=== PATIENT | male | born 1955 | race Caucasian/White ===

== ENCOUNTER 2024-04-29 13:11 | Emergency (ER) | payer MEDICARE, OTHER, SELFPAY ==
[2024-04-29 13:40] VITALS: BP 118/77
[2024-04-29 13:56] LABS: % Basophils 0.6 % (0-2); % Eosinophils 4.7 % (0-6); % Immature Granulocytes 0.2 % (0-0.5); % Lymphocytes 40.3 % (20.5-51.1); % Monocytes 10.4 % (1.7-9.3); % Neutrophils 43.8 % (42.2-75.2); Absolute Eosinophils 0.2 10^3/uL (0-0.7); Absolute Lymphocytes 1.9 10^3/uL (1.2-3.4); Absolute Monocytes 0.5 10^3/uL (0.1-0.6); Absolute Neutrophils 2.1 10^3/uL (1.4-6.5); Hematocrit 43.4 % (39.0-52.0); Hemoglobin 14.9 g/dL (13.0-18.0); Mean Corp Hgb Conc. 34.3 g/dL (33.0-37.0); Mean Corpuscular Hgb 31.6 pg (27.0-31.0); Mean Corpuscular Volume 91.9 fL (80.0-94.0); Mean Platelet Volume 9.3 fL (7.4-10.4); Nucleated Red Blood Cells % 0 % (-); Platelet Count 167 10^3/uL (130-400); Red Blood Cell Count 4.72 10^6/uL (4.70-6.10); Red Cell Dist. Width 12.3 % (11.5-14.5); White Blood Cell Count 4.7 10^3/uL (4.8-10.8)
[2024-04-29 14:11] LABS: ALT (SGPT) 68 U/L (0-50); AST (SGOT) 57 U/L (17-59); Albumin 4.9 g/dl (3.5-5.0); Alkaline Phosphatase 51 U/L (38-126); Blood Urea Nitrogen 14 mg/dl (9-20); Calcium 9.6 mg/dl (8.4-10.2); Carbon Dioxide 29 mmol/L (22-30); Chloride 101 mmol/L (98-107); Glucose 135 mg/dl (70-99); Potassium 4.1 mmol/L (3.5-5.1); Sodium 137 mmol/L (135-145); Total Bilirubin 0.6 mg/dl (0.2-1.3); Total Protein 9.1 g/dl (6.3-8.2); eGFR > 60.00
[2024-04-29 14:50] LABS: Erythrocyte Sed Rate 25 mm/hour (0-20)
[2024-04-29 16:07] VITALS: BP 123/73
--- NOTE | 2024-04-29 16:52 | ED.GENMED ---
History of Present Illness
General
Chief Complaint: Headache
Source: patient
Exam Limitations: none
Time Seen by Provider: 04/29/24 16:41
History of Present Illness
History of Present Illness:
See MDM
Past History
Past History
ED Past Medical History: Hypercholesterolemia, NIDDM, Psychiatric (Anxiety, Depression) and Other (Renal calculus, )
ED Past Surgical History: Cholecystectomy
Social History
Tobacco: Non-smoker
Alcohol: None
Personal:
Living: with family
Phy Exam
Physical Exam
Physical Exam:
See MDM
Course
Orders/Labs/Results
Orders:
Orders
04/29/24 13:48
C-Reactive Protein Urgent
Complete Blood Count/With Diff Urgent
Comprehensive Metabolic Panel Urgent
ESR [Erythrocyte Sed Rate] Urgent
04/29/24 16:49
CT Head W/o Iv Contrast Urgent
Comment:
Reason For Exam: left side headache
04/29/24 16:50
Carbamazepine [Tegretol] 200 mg PO ONCE ONE
Abnormal Lab Results
04/29/24
13:48
WBC 4.7 L 10^3/uL
(4.8-10.8)
MCH 31.6 H pg
(27.0-31.0)
Monocytes % 10.4 H %
(1.7-9.3)
ESR 25 H mm/hour
(0-20)
Glucose 135 H mg/dl
(70-99)
ALT 68 H U/L
(0-50)
Total Protein 9.1 H g/dl
(6.3-8.2)
04/29/24 13:48
04/29/24 13:48
Vital Signs
Initial and Last Documented VS:
Initial Vital Signs
Temp Pulse Resp BP Pulse Ox
97.9 F 87 18 118/77 96
04/29/24 13:40 04/29/24 13:40 04/29/24 13:40 04/29/24 13:40 04/29/24 13:40
Last Documented Vital Signs
Temp Pulse Resp BP Pulse Ox
97.9 F 87 18 123/73 97
04/29/24 13:40 04/29/24 16:07 04/29/24 16:07 04/29/24 16:07 04/29/24 16:07
MDM/Problems Addressed
Differential Diagnosis Includes:
HPI and MDM Narrative:
68-year-old male presenting with left-sided headache. He points to his left scalp along his hairline and back into his ear. He spoke to his doctor and his symptoms and was sent to the emergency department to rule out temporal arteritis. On exam,
he is well-appearing and nontoxic. There is no tenderness to palpation of the temporal artery. Blood work was done prior to my assessment and his CRP is normal. Although he ESR is mildly elevated at 25, doubt temporal arteritis given that it is
less than 50
His pain distribution is more indicative of trigeminal neuralgia. Will obtain CT head and start low-dose Tegretol
Physical exam
General: Well appearing and non-toxic
HEENT: protecting airway. EOMI. No tenderness to palpation of temporal artery
Neck: appears supple
CV: No evidence of cyanosis
Resp: No accessory muscle use
Abd: Non-distended
Extremities: No deformities
Neuro: alert
Psych: Normal affect
Skin: Intact
Problems Addressed including Acute and Chronic Conditions affecting care:
1. Scalp pain
Acuity: acute
Prognosis: stable
Details: Likely in the setting of trigeminal neuralgia. Given no tenderness with temporal artery palpation and only minimally elevated ESR, doubt temporal arteritis
Updates
CT head negative. On reassessment, patient feeling somewhat better and feels comfortable going home. We discussed that we are giving a trial of Tegretol this week and discussed symptoms and having it reevaluated with PCP
Differential Diagnosis (but not limited to): Trigeminal neuralgia, tension headache, migraine
Testing considered: EKG
Drug therapy (if applicable): OTC meds, please see d/c instruction regarding Rx drugs
Amount and/or Complexity of Data Reviewed
Clinical info obtained from: Patient
External data reviewed: N/A
Labs I independently reviewed (but not limited to): ESR minimally elevated at 25. CRP normal
Radiology: The CT scan was personally and independently reviewed. In addition, official CT report reviewed.
Pulse Ox: not hypoxic
EKG independently reviewed: N/A
[employer] Operator: N/A
Critical Care: N/A
Risk of Complication:
Social Determinants of health: Good social support
Discussed with other providers: N/A
Escalation of Care includes Admit/Obs: After being observed in the Emergency Department, pt stable for discharge.
Occasional wrong word or 'sound a like' substitutions may have occurred due to the inherent limitations of voice recognition software. Read the chart carefully and recognize, using context, where substitutions have occurred.
*Critical Care Note
Total Time (30-74mins, 75-104mins- exclusive of procedures): Not Applicable
ED Attending Note
-
Portions of this chart may have been created with voice recognition software.� Occasional wrong word or��sound alike� substitutions may have occurred due to the inherent limitations of voice recognition software.
Discharge Plan
Departure
Patient Disposition: Home (Routine Discharge)
Date of Disposition: 04/29/24
Time of Disposition: 19:50
Patient with high blood pressure during this ER visit?: No
Discharge Problem:
Trigeminal neuralgia of left side of face
Instructions: Trigeminal neuralgia
Prescriptions:
New
carbamazepine [Tegretol] 200 mg tablet
200 mg PO BID Qty: 14 0RF
No Action
doxycycline monohydrate 100 mg capsule
100 mg PO BID Qty: 20 0RF
cefuroxime axetil 500 mg tablet
500 mg PO BID 10 Days Qty: 20 0RF
Referrals:
Shirlene Schneider MD [Family Provider] -
Activity Restrictions/Additional Instructions:
As we discussed, your symptoms could be related to an inflamed nerve on the left side of your face. I am starting you on a low-dose medication called carbamazepine. Please have your symptoms reevaluated by your primary care doctor. If the
medicine is helping, your doctor may want to continue it for a longer duration.
Please return for any worsening symptoms.
You may return at any time if you have further concerns.
Please follow up with your doctor at the first available appointment, preferably this week.
Thank you for choosing [facility].
Interventions
Interventions:
*Risk Screen - Suicide Last Done: 04/29/24 16:06
*General Assessment Last Done: 04/29/24 16:06
*Neglect/Abuse Screening Last Done: 04/29/24 16:06
ED- Fall Risk Assessment Last Done: 04/29/24 16:08
*ED COVID-19 Vaccine History Last Done: 04/29/24 16:06
ED- Neurological Assessment Last Done: 04/29/24 16:08
Discharge Date and Time
Print Language: [id number]
[2024-04-29] MEDS: TEGRETOL 200 MG PO (17:03)
== END 2024-04-29 20:10 | disposition home or self-care (01) ==
LOC: EMR 13:11
PROVIDERS: Emergency Medicine; EMERGENCY PHYSICIAN Student in an Organized Health Care Education/Training Program; FAMILY PHYSICIAN Internal Medicine Geriatric Medicine
DX: G50.0 Trigeminal neuralgia (principal); E78.00 Pure hypercholesterolemia, unspecified; E11.9 Type 2 diabetes mellitus without complications; F41.8 Other specified anxiety disorders; Z87.442 Personal history of urinary calculi; Z90.49 Acquired absence of other specified parts of digestive tract
CPT/HCPCS: 99284; 70450; 80053; 85025; 85652; 86140

== ENCOUNTER → 2024-07-20 09:40 | Outpatient (REF) | payer MEDICARE, OTHER, SELFPAY | LOC: HWRAD 09:40 | PROVIDERS: ATTENDING PHYSICIAN Urology | DX: N20.0 Calculus of kidney (principal) | CPT/HCPCS: 76775 ==

== ENCOUNTER → 2024-08-17 12:18 | Outpatient (REF) | payer MEDICARE, OTHER, SELFPAY | LOC: PAVMRI 12:18 | PROVIDERS: ATTENDING PHYSICIAN Student in an Organized Health Care Education/Training Program | DX: R51.9 Headache, unspecified (principal); Z82.49 Family history of ischemic heart disease and other diseases of the circulatory system; G50.0 Trigeminal neuralgia | CPT/HCPCS: 70544; 70553; A9575 ==

== ENCOUNTER → 2025-01-31 09:01 | Outpatient (REF) | payer MEDICARE, OTHER, SELFPAY | LOC: HWRAD 09:01 | PROVIDERS: ATTENDING PHYSICIAN Urology | DX: N20.0 Calculus of kidney (principal) | CPT/HCPCS: 76775 ==